=== PATIENT | female | born 1995 | race Asian ===

== ENCOUNTER 2020-07-14 15:46 | Emergency (ER) | payer OTHER ==
[~2020-07-14] VITALS: Ht 142.2 cm; Wt 54.5 kg
[2020-07-14 18:50] VITALS: BP 135/68
== END 2020-07-14 19:23 | disposition home or self-care (01) ==
LOC: EMS 15:46
DX: K92.1 Melena (principal)
CPT/HCPCS: 82270; 82271

== ENCOUNTER 2025-04-26 18:06 | Emergency (ER) | payer OTHER ==
[~2025-04-26] VITALS: Ht 144.8 cm; Wt 63.6 kg
[2025-04-26 18:24] VITALS: TEMP 98.1
[2025-04-26] MEDS: PERTUSS(ACELL),DIPH,TET/PF 0.5 ML SYRINGE [ADULT] IM. ONE (20:55)
[2025-04-26] MEDS: BACITRACIN 0.9 GM PACKET OINTMENT TP ONE (20:55)
[2025-04-26 20:56] VITALS: BP 124/86; PULSE 92; RESP 16; O2SAT 97
[2025-04-26] MEDS ORDERED: AMOX-457 PO (20:56)
[2025-04-26] MEDS ORDERED: BACI28.410 TP (20:56)
[2025-04-26] MEDS: AMOX TR/POT CLAV 875 MG/125 MG TABLET PO ONE (21:01)
== END 2025-04-26 21:03 | disposition home or self-care (01) ==
LOC: EMS 18:06
DX: S21.051A Open bite of right breast, initial encounter (principal); J45.909 Unspecified asthma, uncomplicated; W54.0XXA Bitten by dog, initial encounter; Y93.89 Activity, other specified; Y92.89 Other specified places as the place of occurrence of the external cause; Y99.8 Other external cause status
CPT/HCPCS: 99283